=== PATIENT | male | born 1955 | race Caucasian/White ===

== ENCOUNTER 2018-07-20 00:33 | Inpatient (IN) | payer MEDICARE, OTHER ==
[~2018-07-20] VITALS: Ht 182.9 cm; Wt 82.6 kg
[2018-07-20 01:03] LABS: BASO # 0.1 x10^3/uL (0.0-0.2); BASO % 1 % (0-3); EOS # 0.1 x10^3/uL (0.0-0.7); EOS % 1 % (0-3); HEMOGLOBIN 14.4 g/dL (13.0-17.5); LYMPH # 1.3 x10^3/uL (1.0-4.8); LYMPH % 13 % (24-48); MEAN CORPUSCULAR HEMOGLOBIN 34 pg (25-35); MEAN CORPUSCULAR HGB CONC 35 g/dL (31-37); MEAN CORPUSCULAR VOLUME 96 fL (79-100); MONO # 0.5 x10^3/uL (0.0-1.1); MONO % 5 % (0-9); NEUT # 8.3 x10^3uL (1.8-7.7); NEUT % 81 % (31-73); PLATELET COUNT 237 x10^3/uL (140-400); RED BLOOD COUNT 4.27 x10^6/uL (4.30-5.70); RED CELL DISTRIBUTION WIDTH 14.8 % (11.5-14.5); WHITE BLOOD COUNT 10.3 x10^3/uL (4.0-11.0)
[2018-07-20] MEDS ORDERED: METOCLOPRAMIDE HCL 10 MG/2 ML VIAL. ONE (01:04)
[2018-07-20] MEDS ORDERED: KETOROLAC 15 MG/ML VIAL. ONE (01:04)
--- NOTE | 2018-07-20 01:04 | PHYS DOC ---
Past Medical History Past Medical History: CVA, Hypertension, Kidney Stone Past Surgical History: No Surgical History Alcohol Use: None Drug Use: None Adult General Chief Complaint Chief Complaint: FLANK PAIN HPI HPI Patient is a 62 year old male presenting to the ED with left flank pain. He has a past medical history significant for numerous kidney stones, number in the 30s , which have previously required lithotripsy. Describes the pain as sharp, located in the left flank. States that it started yesterday and has progressively gotten worse. Denies any dysuria or hematuria, however. Pain is 10 out of 10. Denies fever/chills. Denies trauma. Denies rash. Reports last PO at 1730 last night. Review of Systems Review of Systems Constitutional: Denies fever or chills [] Eyes: Denies change in visual acuity, redness, or eye pain [] HENT: Denies nasal congestion or sore throat [] Respiratory: Denies cough or shortness of breath [] Cardiovascular: Denies chest pain GI: Denies abdominal pain or diarrhea; reports nausea and vomiting : Reports left flank pain. Denies dysuria, hematuria. Musculoskeletal: Denies back pain or joint pain [] Integument: Denies rash or skin lesions [] Neurologic: Denies headache, focal weakness or sensory changes [] Complete other systems were reviewed and found to be within normal limits, except as documented in this note. Current Medications Current Medications Current Medications Medications (Trade) Dose Ordered Sig/Gómez Start Time Stop Time Status Last Admin Dose Admin Fentanyl Citrate (Fentanyl 2ml Vial) 50 mcg PRN Q2HR PRN 07/20/18 02:30 07/21/18 02:29 UNV Ketorolac Tromethamine (Toradol 15mg Vial) 15 mg STK-MED ONCE 07/20/18 01:04 07/20/18 01:05 DC Metoclopramide HCl (Reglan Vial) 10 mg STK-MED ONCE 07/20/18 01:04 07/20/18 01:05 DC Ondansetron HCl (Zofran) 4 mg PRN Q8HRS PRN 07/20/18 02:30 07/21/18 02:29 UNV Sodium Chloride 1,000 ml @ 1,000 mls/hr 1X ONCE 07/20/18 01:15 07/20/18 02:14 DC 07/20/18 01:20 1,000 MLS/HR Allergies Allergies Allergies Coded Allergies Type Severity Reaction Last Updated Verified No Known Drug Allergies 07/20/18 No Physical Exam Physical Exam Constitutional: Well developed, well nourished, in pain, uncomfortable HENT: Normocephalic, atraumatic, oropharynx moist. Eyes: PERRL, EOMI, conjunctiva normal, no discharge. [] Neck: Normal range of motion, no tenderness, supple, no stridor. [] Cardiovascular: Heart rate regular rhythm, no murmur [] Lungs & Thorax: Bilateral breath sounds clear to auscultation [] Abdomen: Soft, no tenderness Skin: Warm, dry, no erythema, no rash. [] Back: Left CVA tenderness on palpation, no midline spinal tenderness Extremities: No tenderness, ROM intact, no edema. [] Neurologic: Alert and oriented X 3, normal motor function, normal sensory function, no focal deficits noted. [] Psychologic: Affect normal, judgement normal, mood normal. [] Current Patient Data Vital Signs Vital Signs Date Time Temp Pulse Resp B/P (MAP) Pulse Ox O2 Delivery O2 Flow Rate FiO2 07/20/18 00:40 97.4 64 20 141/94 (110) 99 Room Air 97.4 Lab Values Laboratory Tests Test 07/20/18 00:48 White Blood Count 10.3 x10^3/uL (4.0-11.0) Red Blood Count 4.27 x10^6/uL (4.30-5.70) L Hemoglobin 14.4 g/dL (13.0-17.5) Hematocrit 41.0 % (39.0-53.0) Mean Corpuscular Volume 96 fL (79-100) Mean Corpuscular Hemoglobin 34 pg (25-35) Mean Corpuscular Hemoglobin Concent 35 g/dL (31-37) Red Cell Distribution Width 14.8 % (11.5-14.5) H Platelet Count 237 x10^3/uL (140-400) Neutrophils (%) (Auto) 81 % (31-73) H Lymphocytes (%) (Auto) 13 % (24-48) L Monocytes (%) (Auto) 5 % (0-9) Eosinophils (%) (Auto) 1 % (0-3) Basophils (%) (Auto) 1 % (0-3) Neutrophils # (Auto) 8.3 x10^3uL (1.8-7.7) H Lymphocytes # (Auto) 1.3 x10^3/uL (1.0-4.8) Monocytes # (Auto) 0.5 x10^3/uL (0.0-1.1) Eosinophils # (Auto) 0.1 x10^3/uL (0.0-0.7) Basophils # (Auto) 0.1 x10^3/uL (0.0-0.2) Sodium Level 142 mmol/L (136-145) Potassium Level 4.1 mmol/L (3.5-5.1) Chloride Level 104 mmol/L (98-107) Carbon Dioxide Level 24 mmol/L (21-32) Anion Gap 14 (6-14) Blood Urea Nitrogen 20 mg/dL (8-26) Creatinine 1.0 mg/dL (0.7-1.3) Estimated GFR (Cockcroft-Gault) 76.2 BUN/Creatinine Ratio 20 (6-20) Glucose Level 154 mg/dL (70-99) H Calcium Level 9.4 mg/dL (8.5-10.1) Magnesium Level 2.0 mg/dL (1.8-2.4) Total Bilirubin 0.3 mg/dL (0.2-1.0) Aspartate Amino Transferase (AST) 16 U/L (15-37) Alanine Aminotransferase (ALT) 23 U/L (16-63) Alkaline Phosphatase 74 U/L (46-116) Total Protein 7.3 g/dL (6.4-8.2) Albumin 3.6 g/dL (3.4-5.0) Albumin/Globulin Ratio 1.0 (1.0-1.7) Laboratory Tests 07/20/18 00:48 Laboratory Tests 07/20/18 00:48 EKG EKG [] Radiology/Procedures Radiology/Procedures PROCEDURE: CT ABDOMEN PELVIS WO CONTRAST PQRS Compliance Statement: One or more of the following individualized dose reduction techniques were utilized for this examination: 1. Automated exposure control 2. Adjustment of the mA and/or kV according to patient size 3. Use of iterative reconstruction technique CT ABDOMEN PELVIS WO CONTRAST Clinical Indication: left flank pain eval for ureteral calculi Comparison: None. Technique: Helical CT imaging of the abdomen and pelvis is performed without IV or oral contrast. Findings: Moderate atelectasis and/or scarring in the lung bases. No intraperitoneal free air. Coronary artery disease, three-vessel. Cardiac size upper limits of normal. Liver, gallbladder, spleen, pancreas, and right adrenal gland are normal. 16 mm left adrenal nodule, indeterminate based on attenuation. No right ureteral calculus or hydronephrosis. There are multiple nonobstructing right renal calculi, largest measures 9 mm. There is severe left hydroureteronephrosis secondary to a 15 x 8 mm calculus at the ureteropelvic junction, coronal image 40. There are several nonobstructing left renal calculi. The more distal left ureter is decompressed. There is severe left perinephric stranding. Stomach unremarkable. No dilated small bowel. The appendix is normal. There is no colon wall thickening. Distal colon is decompressed, limiting evaluation. Small bilateral fat-containing inguinal hernias. The urinary bladder is normal. Prostate size normal. No pelvic free fluid. No acute bone abnormality. IMPRESSION: 1. Severe left obstructive uropathy secondary to a 15 x 8 mm calculus at the ureteropelvic junction. 2. Multiple bilateral nonobstructing renal calculi. 3. Indeterminate left adrenal nodule. Electronically signed by: Deni Jones MD (07/20/2018 1:57 AM) [facility] Course & Med Decision Making Course & Med Decision Making 62-year-old male with a significant history of kidney stones present for flank pain. CT ordered and analgesia provided with ketorolac and reglan. IVF hydration given. Labs obtained and posted to chart. Creatinine WNL. UA pending. CT abd/pelvis with findings consistant for severe hydronephrosis due to 15mm UPJ stone. Patient requiring admission for further evaluation and treatment. Discussed case with Dr. Morfin (urology) regarding, who is in agreement with consultation. Discussed with Dr. Abdul (hospitalist) who is in agreement with admission. Discussed findings and plan with patient, who acknowledges understanding and agreement. Dragon Disclaimer Dragon Disclaimer This electronic medical record was generated, in whole or in part, using a voice recognition dictation system. Departure Departure Impression: Primary Impression: Hydronephrosis with renal and ureteral calculus obstruction Disposition: 09 ADMITTED INPATIENT Admitting Physician: Perez Nicolas Condition: STABLE DANN KAUFMAN DO Jul 20, 2018 01:04
[2018-07-20] MEDS ORDERED: IV NORMAL SALINE 1000ML BAG 1,000 ML IV ONE (01:15)
[2018-07-20] MEDS ORDERED: KETOROLAC 15 MG/ML VIAL. IV ONE (01:15)
[2018-07-20] MEDS ORDERED: METOCLOPRAMIDE HCL 10 MG/2 ML VIAL. IV ONE (01:15)
[2018-07-20 01:21] LABS: CALCIUM 9.4 mg/dL (8.5-10.1); GFR 76.2; POTASSIUM 4.1 mmol/L (3.5-5.1)
[2018-07-20 01:26] LABS: ALBUMIN 3.6 g/dL (3.4-5.0); TOTAL BILIRUBIN 0.3 mg/dL (0.2-1.0); TOTAL PROTEIN 7.3 g/dL (6.4-8.2)
--- NOTE | 2018-07-20 02:01 | RAD ---
PQRS Compliance Statement: One or more of the following individualized dose reduction techniques were utilized for this examination: 1. Automated exposure control 2. Adjustment of the mA and/or kV according to patient size 3. Use of iterative reconstruction technique CT ABDOMEN PELVIS WO CONTRAST Clinical Indication: left flank pain eval for ureteral calculi Comparison: None. Technique: Helical CT imaging of the abdomen and pelvis is performed without IV or oral contrast. Findings: Moderate atelectasis and/or scarring in the lung bases. No intraperitoneal free air. Coronary artery disease, three-vessel. Cardiac size upper limits of normal. Liver, gallbladder, spleen, pancreas, and right adrenal gland are normal. 16 mm left adrenal nodule, indeterminate based on attenuation. No right ureteral calculus or hydronephrosis. There are multiple nonobstructing right renal calculi, largest measures 9 mm. There is severe left hydroureteronephrosis secondary to a 15 x 8 mm calculus at the ureteropelvic junction, coronal image 40. There are several nonobstructing left renal calculi. The more distal left ureter is decompressed. There is severe left perinephric stranding. Stomach unremarkable. No dilated small bowel. The appendix is normal. There is no colon wall thickening. Distal colon is decompressed, limiting evaluation. Small bilateral fat-containing inguinal hernias. The urinary bladder is normal. Prostate size normal. No pelvic free fluid. No acute bone abnormality. IMPRESSION: 1. Severe left obstructive uropathy secondary to a 15 x 8 mm calculus at the ureteropelvic junction. 2. Multiple bilateral nonobstructing renal calculi. 3. Indeterminate left adrenal nodule. Electronically signed by: Deni Jones MD (07/20/2018 1:57 AM) [facility]
[2018-07-20] MEDS ORDERED: ONDANSETRON PF 4 MG/2 ML VIAL. IV PRN (02:30)
[2018-07-20] MEDS ORDERED: fentaNYL PF VIAL 100 MCG/2 ML VIAL IV PRN (02:30)
[2018-07-20 03:30] VITALS: BP 135/90
[2018-07-20] MEDS ORDERED: ASPI-630 PO (04:25)
[2018-07-20] MEDS ORDERED: DULO60CA44 PO (04:25)
[2018-07-20] MEDS ORDERED: LISI-130 PO (04:25)
[2018-07-20] MEDS ORDERED: LEVE500T56 PO (04:25)
[2018-07-20 07:00] VITALS: BP 92/58
--- NOTE | 2018-07-20 08:55 | PDOC2 ---
NITISH BERNSTEIN [employer] ATTENDANT 07/20/18 0855: UROLOGY CONSULT Date of Consult Date of Consult DATE: 07/20/18 TIME: 08:50 Identification/Chief Complaint Chief Complaint Kidney stones, left flank pain Source Source: Chart review, Patient History of Present Illness Reason for Visit: Patient is a 62 year old male who presented last night to the ED with left flank pain. He has a past medical history significant for numerous kidney stones , number in the 30s, which have previously required lithotripsy. The pain started day before yesterday and progressively got worse until is twas accompanied by nausea and vomiting until he had to come in. He also denies fever/chills, dysuria or hematuria. He has a history of multiple kidney stones. He has had lithotripsy on them "more times than I can count." His last surgery was this past January and went well. He is not sure where he had this done or with who. All of his symptoms have now subsided and he is actually feeling very well. Social History <1 pack per day ALCOHOL: none Drugs: None Current Problem List Problems: (1) Kidney stone (2) Hydronephrosis with renal and ureteral calculus obstruction Current Medications Current Medications Current Medications Fentanyl Citrate (Fentanyl 2ml Vial) 50 mcg PRN Q2HR PRN IV PAIN; Start at 02:30; Stop 07/21/18 at 02:29 Ketorolac Tromethamine (Toradol 15mg Vial) 15 mg 1X ONCE IV Last administered on 07/20/18at 01:21; Start 07/20/18 at 01:15; Stop 07/20/18 at 01:16; Status DC Ketorolac Tromethamine (Toradol 15mg Vial) 15 mg STK-MED ONCE .ROUTE ; Start at 01:04; Stop 07/20/18 at 01:05; Status DC Metoclopramide HCl (Reglan Vial) 10 mg 1X ONCE IV Last administered on at 01:20; Start 07/20/18 at 01:15; Stop 07/20/18 at 01:16; Status DC Metoclopramide HCl (Reglan Vial) 10 mg STK-MED ONCE .ROUTE ; Start 07/20/18 at 01:04; Stop 07/20/18 at 01:05; Status DC Ondansetron HCl (Zofran) 4 mg PRN Q8HRS PRN IV NAUSEA/VOMITING; Start 07/20/18 at 02:30; Stop 07/21/18 at 02:29 Sodium Chloride 1,000 ml @ 1,000 mls/hr 1X ONCE IV Last administered on at 01:20; Start 07/20/18 at 01:15; Stop 07/20/18 at 02:14; Status DC Allergies Allergies: Coded Allergies: No Known Drug Allergies (Unverified , 07/20/18) ROS Review Of Systems: CONSTITUTIONAL: No fever or chills EYES: No recent changes SKIN: No rash or itching CARDIOVASCULAR: No chest pain, syncope, palpitations, or edema RESPIRATORY: No SOB or cough GASTROINTESTINAL: No nausea, vomiting or abdominal pain NEUROLOGICAL: No headaches or weakness ENDOCRINE: No cold or heat intolerance GENITOURINARY: No urgency or frequency of urination MUSCULOSKELETAL: No back pain or joint pain LYMPHATICS: No enlarged lymph nodes PSYCHIATRIC: No anxiety or depression Physical Exam Physical Exam: General: Pleasant, no acute distress, well groomed Eyes: conjunctiva anicteric, eyes full range of motion ENT: moist oral mucosa, normal dentition Neck: Trachea midline, no masses Respiratory: unlabored breathing, not using accessory muscles Abdomen: nontender, nondistended, Skin: no rashes or skin lesions on visualized skin Psych: normal mood, affect. Alert and oriented x 3. Vitals VITALS Vital Signs Date Time Temp Pulse Resp B/P (MAP) Pulse Ox O2 Delivery O2 Flow Rate FiO2 07/20/18 07:00 98.2 94 16 92/58 (69) 98 Room Air 98.2 Labs Labs Laboratory Tests Test 07/20/18 00:48 White Blood Count 10.3 x10^3/uL (4.0-11.0) Red Blood Count 4.27 x10^6/uL (4.30-5.70) Hemoglobin 14.4 g/dL (13.0-17.5) Hematocrit 41.0 % (39.0-53.0) Mean Corpuscular Volume 96 fL (79-100) Mean Corpuscular Hemoglobin 34 pg (25-35) Mean Corpuscular Hemoglobin Concent 35 g/dL (31-37) Red Cell Distribution Width 14.8 % (11.5-14.5) Platelet Count 237 x10^3/uL (140-400) Neutrophils (%) (Auto) 81 % (31-73) Lymphocytes (%) (Auto) 13 % (24-48) Monocytes (%) (Auto) 5 % (0-9) Eosinophils (%) (Auto) 1 % (0-3) Basophils (%) (Auto) 1 % (0-3) Neutrophils # (Auto) 8.3 x10^3uL (1.8-7.7) Lymphocytes # (Auto) 1.3 x10^3/uL (1.0-4.8) Monocytes # (Auto) 0.5 x10^3/uL (0.0-1.1) Eosinophils # (Auto) 0.1 x10^3/uL (0.0-0.7) Basophils # (Auto) 0.1 x10^3/uL (0.0-0.2) Sodium Level 142 mmol/L (136-145) Potassium Level 4.1 mmol/L (3.5-5.1) Chloride Level 104 mmol/L (98-107) Carbon Dioxide Level 24 mmol/L (21-32) Anion Gap 14 (6-14) Blood Urea Nitrogen 20 mg/dL (8-26) Creatinine 1.0 mg/dL (0.7-1.3) Estimated GFR (Cockcroft-Gault) 76.2 BUN/Creatinine Ratio 20 (6-20) Glucose Level 154 mg/dL (70-99) Calcium Level 9.4 mg/dL (8.5-10.1) Magnesium Level 2.0 mg/dL (1.8-2.4) Total Bilirubin 0.3 mg/dL (0.2-1.0) Aspartate Amino Transf (AST/SGOT) 16 U/L (15-37) Alanine Aminotransferase (ALT/SGPT) 23 U/L (16-63) Alkaline Phosphatase 74 U/L (46-116) Total Protein 7.3 g/dL (6.4-8.2) Albumin 3.6 g/dL (3.4-5.0) Albumin/Globulin Ratio 1.0 (1.0-1.7) Laboratory Tests Test 07/20/18 00:48 White Blood Count 10.3 x10^3/uL (4.0-11.0) Red Blood Count 4.27 x10^6/uL (4.30-5.70) Hemoglobin 14.4 g/dL (13.0-17.5) Hematocrit 41.0 % (39.0-53.0) Mean Corpuscular Volume 96 fL (79-100) Mean Corpuscular Hemoglobin 34 pg (25-35) Mean Corpuscular Hemoglobin Concent 35 g/dL (31-37) Red Cell Distribution Width 14.8 % (11.5-14.5) Platelet Count 237 x10^3/uL (140-400) Neutrophils (%) (Auto) 81 % (31-73) Lymphocytes (%) (Auto) 13 % (24-48) Monocytes (%) (Auto) 5 % (0-9) Eosinophils (%) (Auto) 1 % (0-3) Basophils (%) (Auto) 1 % (0-3) Neutrophils # (Auto) 8.3 x10^3uL (1.8-7.7) Lymphocytes # (Auto) 1.3 x10^3/uL (1.0-4.8) Monocytes # (Auto) 0.5 x10^3/uL (0.0-1.1) Eosinophils # (Auto) 0.1 x10^3/uL (0.0-0.7) Basophils # (Auto) 0.1 x10^3/uL (0.0-0.2) Sodium Level 142 mmol/L (136-145) Potassium Level 4.1 mmol/L (3.5-5.1) Chloride Level 104 mmol/L (98-107) Carbon Dioxide Level 24 mmol/L (21-32) Anion Gap 14 (6-14) Blood Urea Nitrogen 20 mg/dL (8-26) Creatinine 1.0 mg/dL (0.7-1.3) Estimated GFR (Cockcroft-Gault) 76.2 BUN/Creatinine Ratio 20 (6-20) Glucose Level 154 mg/dL (70-99) Calcium Level 9.4 mg/dL (8.5-10.1) Magnesium Level 2.0 mg/dL (1.8-2.4) Total Bilirubin 0.3 mg/dL (0.2-1.0) Aspartate Amino Transf (AST/SGOT) 16 U/L (15-37) Alanine Aminotransferase (ALT/SGPT) 23 U/L (16-63) Alkaline Phosphatase 74 U/L (46-116) Total Protein 7.3 g/dL (6.4-8.2) Albumin 3.6 g/dL (3.4-5.0) Albumin/Globulin Ratio 1.0 (1.0-1.7) Images Images CT ABD/PELVIS IMPRESSION: 1. Severe left obstructive uropathy secondary to a 15 x 8 mm calculus at the ureteropelvic junction. 2. Multiple bilateral nonobstructing renal calculi. 3. Indeterminate left adrenal nodule. Assessment/Plan Assessment/Plan Patient is feeling well this morning, would like to go home. He is open to having this managed/scheduled as an outpatient. Will contact Alfreda Tadeo, siderographist [place] [facility] and [place] contact patient. If he does not hear from her by this coming Friday, please call [facility] [place]. He has been given DR. Jameson's card and Alfreda's name, all questions answered. Trial of orals this am. for pain/nausea control Regular diet. Nursing staff please collect urine prior to discharge. If he does well he may discharge home this afternoon. Dr. Jameson aware of patient. ERMA JAMESON MD 07/20/18 1241: UROLOGY CONSULT Assessment/Plan Assessment/Plan Large obstructing proximal left ureteral stone. Not infected and normal renal function. Sx are well controlled. Long h/o nephrolithiasis s/p multiple successful ESWL. Would prefer outpatient treatment. Discussed treatment options including ESWL vs ureteroscopy/laser litho/stent. Reviewed the risks and benefits to each procedure. Patient wishes for outpatient lithotripsy. Scheduled at noon on Friday. Recommended that he stop his ASA and fish oil. No ibuprofen or other NSAIDs until post-procedure. NITISH BERNSTEIN APRN Jul 20, 2018 08:55 ERMA JAMESON MD Jul 20, 2018 12:41
[2018-07-20 11:00] VITALS: BP 113/77
[2018-07-20] MEDS ORDERED: HYDR-2758 PO (12:07)
[2018-07-20] MEDS ORDERED: TAMS0.4C97 PO (12:07)
[2018-07-20] MEDS ORDERED: HYDROcodone/APAP 5/325MG 1 TAB TABLET PO PRN (12:15)
[2018-07-20] MEDS ORDERED: TAMSULOSIN 0.4 MG CAP.ER.24H. PO SCH (13:00)
--- NOTE | 2018-07-20 15:50 | PDOC3 ---
Discharge Summary IPC Date of Admission: Jul 20, 2018 Discharge Date: Jul 20, 2018 Admitting Diagnosis left obstructive kidney stone with hydronephrosis h/o multiple bl kidney stones CVA with left side weakness, mild htn Final Diagnosis CONSULTS uro Brief Hospital Course Patient is a 62 year old male presenting to the ED with left flank pain. He has a past medical history significant for numerous kidney stones, number in the 30s, which have previously required lithotrips. He started to have left flank pain yesterday, sharp, no radiating, no dysuria, or hematuria. CT showed left UP junction 15x8mm stone with hydronephrosis. had one time N/v. Pt has no pain today, insist to go home. uro consulted pt insisted to go home and fu with own uro. pt has no pain currently. ok to dc as per uro if eats ok. dc with flomax, and asked him to do plenty of hydration. dc time 35min. Disposition home CONDITION AT DISCHARGE: Improved Scheduled Aspirin (Aspirin), 82 MG PO DAILY, (Reported) Duloxetine Hcl (Duloxetine Hcl), 90 MG PO DAILY, (Reported) Levetiracetam (Keppra), 750 MG PO BID, (Reported) Lisinopril (Lisinopril), 1 TAB PO DAILY, (Reported) Tamsulosin Hcl (Flomax), 0.4 MG PO DAILY Scheduled PRN Hydrocodone Bit/Acetaminophen (Hydrocodone-Apap 5-325 ), 1 TAB PO PRN Q4HRS PRN for PAIN STEVE ODONNELL MD Jul 20, 2018 15:50
--- NOTE | 2018-07-20 15:50 | PDOC1 ---
History and Physical Date of Admission Date of Admission 07/20/18 Identification/Chief Complaint Chief Complaint left flank pain Source Source: Chart review, Patient History of Present Illness History of Present Illness HPI HPI Patient is a 62 year old male presenting to the ED with left flank pain. He has a past medical history significant for numerous kidney stones, number in the 30s, which have previously required lithotrips. He started to have left flank pain yesterday, sharp, no radiating, no dysuria, or hematuria. CT showed left UP junction 15x8mm stone with hydronephrosis. had one time N/v. Pt has no pain today, insist to go home. Past Medical History CENTRAL NERVOUS SYSTEM: CVA Past Surgical History Past Surgical History KINEY STONE REMOVAL Social History Smoke: <1 pack per day ALCOHOL: none Drugs: None Current Problem List Problem List Problems Medical Problems: (1) Hydronephrosis with renal and ureteral calculus obstruction Status: Acute Current Medications Current Medications Current Medications Medications (Trade) Dose Ordered Sig/Gómez Start Time Stop Time Status Last Admin Dose Admin Acetaminophen/ Hydrocodone Bitart (Lortab 5/325) 1 tab PRN Q4HRS PRN 07/20/18 12:15 07/20/18 14:07 DC Fentanyl Citrate (Fentanyl 2ml Vial) 50 mcg PRN Q2HR PRN 07/20/18 02:30 07/20/18 14:07 DC Ketorolac Tromethamine (Toradol 15mg Vial) 15 mg STK-MED ONCE 07/20/18 01:04 07/20/18 01:05 DC Metoclopramide HCl (Reglan Vial) 10 mg STK-MED ONCE 07/20/18 01:04 07/20/18 01:05 DC Ondansetron HCl (Zofran) 4 mg PRN Q8HRS PRN 07/20/18 02:30 07/20/18 14:07 DC Sodium Chloride 1,000 ml @ 1,000 mls/hr 1X ONCE 07/20/18 01:15 07/20/18 02:14 DC 07/20/18 01:20 1,000 MLS/HR Tamsulosin HCl (Flomax) 0.4 mg DAILY 07/20/18 13:00 07/20/18 14:07 DC 07/20/18 13:29 0.4 MG Allergies Allergies Allergies Coded Allergies Type Severity Reaction Last Updated Verified No Known Drug Allergies 07/20/18 No ROS Review of System CONSTITUTIONAL: No fever or chills EYES: No recent changes SKIN: No rash or itching CARDIOVASCULAR: No chest pain, syncope, palpitations, or edema RESPIRATORY: No SOB or cough GASTROINTESTINAL: No nausea, vomiting or abdominal pain NEUROLOGICAL: No headaches or weakness ENDOCRINE: No cold or heat intolerance GENITOURINARY: No urgency or frequency of urination MUSCULOSKELETAL: No back pain or joint pain LYMPHATICS: No enlarged lymph nodes PSYCHIATRIC: No anxiety or depression Physical Exam Physical Exam GEN.: No apparent distress. Alert and oriented. HEENT: Head is normocephalic, atraumatic NECK: Supple. LUNGS: Clear to auscultation. HEART: RRR, S1, S2 present. Peripheral pulses intact ABDOMEN: Soft, nontender. Positive bowel sounds. EXTREMITIES: Without any cyanosis. NEUROLOGIC: Normal speech, normal tone PSYCHIATRIC: Normal affect, normal mood. SKIN: No ulcerations Vitals Vitals Vital Signs Date Time Temp Pulse Resp B/P (MAP) Pulse Ox O2 Delivery O2 Flow Rate FiO2 07/20/18 11:00 98.3 97 16 113/77 (89) 95 Room Air 98.3 Labs Labs Laboratory Tests Test 07/20/18 00:48 White Blood Count 10.3 x10^3/uL (4.0-11.0) Red Blood Count 4.27 x10^6/uL (4.30-5.70) Hemoglobin 14.4 g/dL (13.0-17.5) Hematocrit 41.0 % (39.0-53.0) Mean Corpuscular Volume 96 fL (79-100) Mean Corpuscular Hemoglobin 34 pg (25-35) Mean Corpuscular Hemoglobin Concent 35 g/dL (31-37) Red Cell Distribution Width 14.8 % (11.5-14.5) Platelet Count 237 x10^3/uL (140-400) Neutrophils (%) (Auto) 81 % (31-73) Lymphocytes (%) (Auto) 13 % (24-48) Monocytes (%) (Auto) 5 % (0-9) Eosinophils (%) (Auto) 1 % (0-3) Basophils (%) (Auto) 1 % (0-3) Neutrophils # (Auto) 8.3 x10^3uL (1.8-7.7) Lymphocytes # (Auto) 1.3 x10^3/uL (1.0-4.8) Monocytes # (Auto) 0.5 x10^3/uL (0.0-1.1) Eosinophils # (Auto) 0.1 x10^3/uL (0.0-0.7) Basophils # (Auto) 0.1 x10^3/uL (0.0-0.2) Sodium Level 142 mmol/L (136-145) Potassium Level 4.1 mmol/L (3.5-5.1) Chloride Level 104 mmol/L (98-107) Carbon Dioxide Level 24 mmol/L (21-32) Anion Gap 14 (6-14) Blood Urea Nitrogen 20 mg/dL (8-26) Creatinine 1.0 mg/dL (0.7-1.3) Estimated GFR (Cockcroft-Gault) 76.2 BUN/Creatinine Ratio 20 (6-20) Glucose Level 154 mg/dL (70-99) Calcium Level 9.4 mg/dL (8.5-10.1) Magnesium Level 2.0 mg/dL (1.8-2.4) Total Bilirubin 0.3 mg/dL (0.2-1.0) Aspartate Amino Transf (AST/SGOT) 16 U/L (15-37) Alanine Aminotransferase (ALT/SGPT) 23 U/L (16-63) Alkaline Phosphatase 74 U/L (46-116) Total Protein 7.3 g/dL (6.4-8.2) Albumin 3.6 g/dL (3.4-5.0) Albumin/Globulin Ratio 1.0 (1.0-1.7) Laboratory Tests Test 07/20/18 00:48 White Blood Count 10.3 x10^3/uL (4.0-11.0) Red Blood Count 4.27 x10^6/uL (4.30-5.70) Hemoglobin 14.4 g/dL (13.0-17.5) Hematocrit 41.0 % (39.0-53.0) Mean Corpuscular Volume 96 fL (79-100) Mean Corpuscular Hemoglobin 34 pg (25-35) Mean Corpuscular Hemoglobin Concent 35 g/dL (31-37) Red Cell Distribution Width 14.8 % (11.5-14.5) Platelet Count 237 x10^3/uL (140-400) Neutrophils (%) (Auto) 81 % (31-73) Lymphocytes (%) (Auto) 13 % (24-48) Monocytes (%) (Auto) 5 % (0-9) Eosinophils (%) (Auto) 1 % (0-3) Basophils (%) (Auto) 1 % (0-3) Neutrophils # (Auto) 8.3 x10^3uL (1.8-7.7) Lymphocytes # (Auto) 1.3 x10^3/uL (1.0-4.8) Monocytes # (Auto) 0.5 x10^3/uL (0.0-1.1) Eosinophils # (Auto) 0.1 x10^3/uL (0.0-0.7) Basophils # (Auto) 0.1 x10^3/uL (0.0-0.2) Sodium Level 142 mmol/L (136-145) Potassium Level 4.1 mmol/L (3.5-5.1) Chloride Level 104 mmol/L (98-107) Carbon Dioxide Level 24 mmol/L (21-32) Anion Gap 14 (6-14) Blood Urea Nitrogen 20 mg/dL (8-26) Creatinine 1.0 mg/dL (0.7-1.3) Estimated GFR (Cockcroft-Gault) 76.2 BUN/Creatinine Ratio 20 (6-20) Glucose Level 154 mg/dL (70-99) Calcium Level 9.4 mg/dL (8.5-10.1) Magnesium Level 2.0 mg/dL (1.8-2.4) Total Bilirubin 0.3 mg/dL (0.2-1.0) Aspartate Amino Transf (AST/SGOT) 16 U/L (15-37) Alanine Aminotransferase (ALT/SGPT) 23 U/L (16-63) Alkaline Phosphatase 74 U/L (46-116) Total Protein 7.3 g/dL (6.4-8.2) Albumin 3.6 g/dL (3.4-5.0) Albumin/Globulin Ratio 1.0 (1.0-1.7) VTE Prophylaxis Ordered VTE Prophylaxis Devices: Yes VTE Pharmacological Prophylaxi: No Assessment/Plan Assessment/Plan left obstructive kidney stone with hydronephrosis h/o multiple bl kidney stones CVA with left side weakness, mild htn plan; uro consulted pt insisted to go home and fu with own uro. ok to dc as per uro if eats ok. STEVE ODONNELL MD Jul 20, 2018 15:50
== END 2018-07-20 14:00 | disposition home or self-care (01) | DRG 694 ==
LOC: ER 00:33 → 4 NORTH 02:43
PROVIDERS: ADMIT Family Medicine; ATTEND Family Medicine
DX: N13.2 Hydronephrosis with renal and ureteral calculous obstruction (principal); I69.354 Hemiplegia and hemiparesis following cerebral infarction affecting left non-dominant side; F17.210 Nicotine dependence, cigarettes, uncomplicated; I10 Essential (primary) hypertension; Z87.442 Personal history of urinary calculi
CPT/HCPCS: 36415; 74176; 80053; 83735; 85025; 96361; 96374; J1885; J2765; J7030; 99285-25

== ENCOUNTER 2018-07-20 18:24 | Emergency (ER) | payer MEDICARE ==
[~2018-07-20] VITALS: Ht 180.3 cm; Wt 82.6 kg
[~2018-07-20 18:24] MED LIST: ASPI-630 PO; DULO60CA44 PO; HYDR-2758 PO; LEVE500T56 PO; LISI-130 PO; TAMS0.4C97 PO
[2018-07-20] MEDS ORDERED: ONDANSETRON PF 4 MG/2 ML VIAL. IM ONE (19:00)
[2018-07-20] MEDS ORDERED: fentaNYL PF VIAL 100 MCG/2 ML VIAL IV ONE (19:00)
[2018-07-20 19:02] LABS: BASO # 0.1 x10^3/uL (0.0-0.2); BASO % 1 % (0-3); EOS # 0.1 x10^3/uL (0.0-0.7); EOS % 1 % (0-3); HEMATOCRIT 40.1 % (39.0-53.0); HEMOGLOBIN 13.6 g/dL (13.0-17.5); LYMPH # 2.3 x10^3/uL (1.0-4.8); LYMPH % 19 % (24-48); MEAN CORPUSCULAR HEMOGLOBIN 33 pg (25-35); MEAN CORPUSCULAR HGB CONC 34 g/dL (31-37); MEAN CORPUSCULAR VOLUME 97 fL (79-100); MONO # 1.3 x10^3/uL (0.0-1.1); MONO % 11 % (0-9); NEUT # 8.1 x10^3uL (1.8-7.7); NEUT % 68 % (31-73); PLATELET COUNT 229 x10^3/uL (140-400); RED BLOOD COUNT 4.15 x10^6/uL (4.30-5.70); RED CELL DISTRIBUTION WIDTH 14.8 % (11.5-14.5); WHITE BLOOD COUNT 11.9 x10^3/uL (4.0-11.0)
[2018-07-20 19:05] LABS: BILIRUBIN,URINE NEGATIVE (NEG); CLARITY,URINE CLEAR; COLOR,URINE YELLOW; NITRITE,URINE NEGATIVE (NEG); PH,URINE 5.5; PROTEIN,URINE NEGATIVE (NEG-TRACE); UROBILINOGEN,URINE 0.2 mg/dL (0.2 mg/dL)
[2018-07-20 19:08] LABS: CALCIUM 8.8 mg/dL (8.5-10.1); CREATININE 1.3 mg/dL (0.7-1.3); GFR 56.3; POTASSIUM 3.4 mmol/L (3.5-5.1)
[2018-07-20 19:14] LABS: ALBUMIN 3.6 g/dL (3.4-5.0); TOTAL BILIRUBIN 0.3 mg/dL (0.2-1.0); TOTAL PROTEIN 7.2 g/dL (6.4-8.2)
[2018-07-20] MEDS ORDERED: KETOROLAC 15 MG/ML VIAL. IV ONE (19:15)
[2018-07-20] MEDS ORDERED: ONDANSETRON PF 4 MG/2 ML VIAL. IV ONE (19:15)
[2018-07-20 19:25] LABS: RBC,URINE 20-40 /HPF (0-2)
[2018-07-20 19:26] LABS: BACTERIA,URINE FEW /HPF (0-FEW); SQUAMOUS EPITHELIAL CELL,UR FEW /LPF; YEAST,URINE PRESENT /HPF
[2018-07-20 19:30] VITALS: BP 124/78
--- NOTE | 2018-07-20 19:51 | PHYS DOC ---
Past Medical History Past Medical History: CVA, Hypertension, Kidney Stone Past Surgical History: Other Additional Past Surgical Histo: WPW ABLATION, LITHOTRIPSY Alcohol Use: None Drug Use: None Adult General Chief Complaint Chief Complaint: FLANK PAIN HPI HPI Patient is a 62 year old released from this facility earlier this afternoon for treatment of left-sided 5 mm ureteral stone presents with flank pain radiating to left testicle. Pain is intermittent and rated moderate Symptoms recurred just prior to ED arrival. Patient states he had dropped his prescriptions off at the pharmacy but had not yet chance to fill his pain medication and Flomax. Reports nausea, denies vomiting. No fevers chills, sweats. No hematuria or decreased urine output. No other acute symptoms or complaints. [] Review of Systems Review of Systems Review symptoms as per history of present illness. All other review symptoms are negative. All other systems were reviewed and found to be within normal limits, except as documented in this note. Current Medications Current Medications Current Medications Medications (Trade) Dose Ordered Sig/Gómez Start Time Stop Time Status Last Admin Dose Admin Fentanyl Citrate (Fentanyl 2ml Vial) 75 mcg 1X ONCE 07/20/18 19:00 07/20/18 19:01 DC Ketorolac Tromethamine (Toradol 15mg Vial) 15 mg 1X ONCE 07/20/18 19:15 07/20/18 19:16 DC 07/20/18 19:15 15 MG Ondansetron HCl (Zofran) 4 mg 1X ONCE 07/20/18 19:15 07/20/18 19:16 DC 07/20/18 19:15 4 MG Allergies Allergies Allergies Coded Allergies Type Severity Reaction Last Updated Verified No Known Drug Allergies 07/20/18 No Physical Exam Physical Exam Constitutional: Well developed, well nourished, no acute distress, non-toxic appearance. [] HENT: Normocephalic, atraumatic, bilateral external ears normal, oropharynx moist, no oral exudates, nose normal. [] Eyes: PERRLA, EOMI, conjunctiva normal, no discharge. [] Neck: Normal range of motion, no tenderness, supple, no stridor. [] Cardiovascular:Heart rate regular rhythm, no murmur [] Lungs & Thorax: Bilateral breath sounds clear to auscultation [] Abdomen: Bowel sounds normal, soft, no tenderness, no masses, no pulsatile masses. [] Skin: Warm, dry. [] Back: No tenderness, no CVA tenderness. [] Extremities: No tenderness, no cyanosis, no clubbing, ROM intact, no edema. [] Neurologic: Alert and oriented X 3, normal motor function, normal sensory function, no focal deficits noted. [] Psychologic: Affect normal, judgement normal, mood normal. [] Current Patient Data Vital Signs Vital Signs Date Time Temp Pulse Resp B/P (MAP) Pulse Ox O2 Delivery O2 Flow Rate FiO2 07/20/18 18:30 99.0 107 20 139/81 (100) 99.0 Lab Values Laboratory Tests Test 07/20/18 18:30 11 18:45 Urine Collection Type Unknown Urine Color Yellow Urine Clarity Clear Urine pH 5.5 Urine Specific [place] 1.020 Urine Protein Negative mg/dL (NEG-TRACE) Urine Glucose (UA) Negative mg/dL (NEG) Urine Ketones (Stick) Negative mg/dL (NEG) Urine Blood Large (NEG) Urine Nitrite Negative (NEG) Urine Bilirubin Negative (NEG) Urine Urobilinogen Dipstick 0.2 mg/dL (0.2 mg/dL) Urine Leukocyte Esterase Small (NEG) Urine RBC 20-40 /HPF (0-2) Urine WBC 5-10 /HPF (0-4) Urine Squamous Epithelial Cells Few /LPF Urine Bacteria Few /HPF (0-FEW) Urine Mucus Mod /LPF Urine Yeast Present /HPF White Blood Count 11.9 x10^3/uL (4.0-11.0) H Red Blood Count 4.15 x10^6/uL (4.30-5.70) L Hemoglobin 13.6 g/dL (13.0-17.5) Hematocrit 40.1 % (39.0-53.0) Mean Corpuscular Volume 97 fL (79-100) Mean Corpuscular Hemoglobin 33 pg (25-35) Mean Corpuscular Hemoglobin Concent 34 g/dL (31-37) Red Cell Distribution Width 14.8 % (11.5-14.5) H Platelet Count 229 x10^3/uL (140-400) Neutrophils (%) (Auto) 68 % (31-73) Lymphocytes (%) (Auto) 19 % (24-48) L Monocytes (%) (Auto) 11 % (0-9) H Eosinophils (%) (Auto) 1 % (0-3) Basophils (%) (Auto) 1 % (0-3) Neutrophils # (Auto) 8.1 x10^3uL (1.8-7.7) H Lymphocytes # (Auto) 2.3 x10^3/uL (1.0-4.8) Monocytes # (Auto) 1.3 x10^3/uL (0.0-1.1) H Eosinophils # (Auto) 0.1 x10^3/uL (0.0-0.7) Basophils # (Auto) 0.1 x10^3/uL (0.0-0.2) D-Dimer (Sammi) 0.32 ug/mlFEU (0.00-0.50) Sodium Level 141 mmol/L (136-145) Potassium Level 3.4 mmol/L (3.5-5.1) L Chloride Level 104 mmol/L (98-107) Carbon Dioxide Level 26 mmol/L (21-32) Anion Gap 11 (6-14) Blood Urea Nitrogen 17 mg/dL (8-26) Creatinine 1.3 mg/dL (0.7-1.3) Estimated GFR (Cockcroft-Gault) 56.3 BUN/Creatinine Ratio 13 (6-20) Glucose Level 108 mg/dL (70-99) H Calcium Level 8.8 mg/dL (8.5-10.1) Total Bilirubin 0.3 mg/dL (0.2-1.0) Aspartate Amino Transferase (AST) 18 U/L (15-37) Alanine Aminotransferase (ALT) 24 U/L (16-63) Alkaline Phosphatase 62 U/L (46-116) Total Protein 7.2 g/dL (6.4-8.2) Albumin 3.6 g/dL (3.4-5.0) Albumin/Globulin Ratio 1.0 (1.0-1.7) Laboratory Tests 07/20/18 18:45 Laboratory Tests 07/20/18 18:45 EKG EKG [] Radiology/Procedures Radiology/Procedures [] Course & Med Decision Making Course & Med Decision Making Pertinent Labs and Imaging studies reviewed. (See chart for details) [Symptoms improved with treatment. We'll discharge home with instructions of picking up prescriptions after leaving the emergency department. Return precautions reviewed. Patient does have outpatient follow-up scheduled 2 days for lithotripsy.] Dragon Disclaimer Dragon Disclaimer This electronic medical record was generated, in whole or in part, using a voice recognition dictation system. Departure Departure Impression: Primary Impression: Kidney stone Disposition: HOME, SELF-CARE Condition: GOOD Referrals: [facility] (PCP) Patient Instructions: Kidney Stones, [id number] Additional Instructions: Please increase fluids and take medications as currently prescribed and follow up with your urologist as scheduled. DAISY CHAMORRO DO Jul 20, 2018 19:51
== END 2018-07-20 19:40 | disposition home or self-care (01) ==
LOC: ER 18:24
DX: N20.1 Calculus of ureter (principal); N50.812 Left testicular pain; I10 Essential (primary) hypertension; Z86.73 Personal history of transient ischemic attack (TIA), and cerebral infarction without residual deficits
CPT/HCPCS: 36415; 80053; 81001; 85025; 85379; 87086; 96374; 96375; 99284; J1885; J2405